=== PATIENT | male | born 1965 | race Caucasian/White ===

== ENCOUNTER 2022-04-11 18:17 | Emergency (ER) | payer SELFPAY ==
[~2022-04-11] VITALS: Ht 160 cm; Wt 75.0 kg
[2022-04-11 20:30] VITALS: BP 131/87
== END 2022-04-11 20:44 | disposition left against medical advice (07) ==
LOC: ER 18:17
DX: T40.711A Poisoning by cannabis, accidental (unintentional), initial encounter (principal); F12.129 Cannabis abuse with intoxication, unspecified; R41.82 Altered mental status, unspecified; R00.0 Tachycardia, unspecified; Y92.89 Other specified places as the place of occurrence of the external cause
CPT/HCPCS: 99283